=== PATIENT | male | born 1955 ===

== ENCOUNTER 2023-03-27 10:52 | Observation (INO) | payer MEDICARE, SELFPAY ==
--- NOTE | ~2023-03-27 | US_ITS ---
EXAMINATION: US carotid duplex BI DATE: 03/28/2023 08:11 INDICATION: Recent cerebrovascular accident, right posterior parietal area TECHNIQUE: Grayscale, color Doppler, and pulsed Doppler images of the cervical carotid arteries were obtained. The degree of vessel stenosis is placed in one of the following categories: normal, <50%, 5 0-69%, >=70% but less than near-occlusion, near-occlusion, or total occlusion. Note that percent sten osis relative to normal distal artery lumen diameter is indirectly measured from velocity measurement s as described by Fede, et al. Radiology 2003; 229:340-346. COMPARISON: None. FINDINGS: RIGHT: The right common carotid artery (CCA) peak systolic velocity (PSV) is 67.7 cm/s. The right internal c arotid artery (ICA) PSV is 131.1 cm/s. The right ICA end-diastolic velocity (EDV) is 40.4 cm/s. The r ight ICA/CCA PSV ratio is 1.9. Grayscale and color Doppler images yield an estimate of less than 50% diameter reduction from plaque in the ICA. The external carotid artery (ECA) PSV is 82.0 cm/s. There is antegrade flow in the right vertebral artery. LEFT: The left CCA PSV is 74.4 cm/s. The left ICA PSV is 74.4 cm/s. The left ICA EDV is 25.3 cm/s. The left ICA/CCA PSV ratio is 1.0. Grayscale and color Doppler images yield an estimate of less than 50% diam eter reduction from plaque in the ICA. The ECA PSV is 71.9 cm/s. There is antegrade flow in the left vertebral artery. IMPRESSION: 1. Less than 50% stenosis in the right internal carotid artery. 2. Less than 50% stenosis in the left internal carotid artery. Reviewed, dictated and finalized at [facility]. Reviewed, dictated and finalized at [facility].
--- NOTE | ~2023-03-27 | MR_ITS ---
MRI of the brain Clinical History: CVA Technique: Axial and sagittal T1-weighted images were acquired. These were followed by axial T2-weigh jr, diffusion weighted, gradient, and FLAIR images. Following intravenous administration of 13 cc Mu ltiHance gadolinium, T1-weighted fat-sat imaging was performed in the axial and coronal planes. COMPARISON: Prior MR dated 07/18/2011, CT scan performed 03/27/2023 Findings: There is extensive restricted diffusion involving the posterior right temporal lobe and rig ht parietal lobe, compatible with acute infarct, which correlates with the area of hypodensity seen o n recent CT scan. Focal T1 hyperintensity along the posterior margin infarct could reflect petechial hemorrhage or cortical laminar necrosis. There are mild background chronic microvascular ischemic prasanth nges in the periventricular white matter bilaterally. Chronic right occipital lobe infarct noted. Ventricles and subarachnoid spaces are unremarkable. Orbits are unremarkable. Paranasal sinuses and m astoid air cells are clear. Sagittal midline structures are intact. There is patchy enhancement within the infarct, which is not unexpected in an acute infarct. IMPRESSION: Acute infarct extensively involving the posterior right temporal lobe and right parietal lobe, as det luis e above. Chronic right occipital lobe infarct. Minimal chronic microvascular ischemic changes. Reviewed, dictated and finalized at location . IMPRESSION: Acute infarct extensively involving the posterior right temporal lobe and right parietal lobe, as detailed above. Chronic right occipital lobe infarct. Minimal chronic microvascular ischemic changes.
--- NOTE | ~2023-03-27 | CT_ITS ---
EXAMINATION: CT brain wo con DATE: 03/27/2023 13:29 INDICATION: Confusion TECHNIQUE: Computed tomography (CT) of the head was performed without intravenous contrast. The mA wa s adjusted according to patient size. Iterative reconstruction technique was employed. Exam dose: 12 10.67 mGy-cm total exam DLP. COMPARISON: MRI brain/brainstem, MRA brain 07/17/2011 CT brain FINDINGS: There is diminished attenuation of the right posterior parietal area consistent with recent /subacute cerebrovascular accident, right within the middle cerebral artery territory old right occip ital infarct, posterior cerebral artery territory. No intracranial hemorrhage is evident. No midline shift is noted. No subdural or epidural hematoma. No fracture or bone destruction of the cranial vault is detected. Paranasal sinuses and mastoid air c ells are unremarkable. IMPRESSION: Recent/subacute right posterior parietal cerebrovascular accident, within right middle c erebral artery territory Old right occipital infarct Reviewed, dictated and finalized at [facility]. Reviewed, dictated and finalized at [facility]. IMPRESSION: Recent/subacute right posterior parietal cerebrovascular accident, within right middle cerebral artery territory Old right occipital infarct
[2023-03-27 11:15] VITALS: PULSE 64; RESP 14; TEMP 37.1; O2SAT 100
--- NOTE | 2023-03-27 12:04 | ED.GENADULT ---
HPI - General Adult General Chief complaint: Unspecified Stated complaint: HAD ?TIA 7 DAYS AGO Time Seen by Provider: 03/27/23 12:02 History of Present Illness HPI narrative: This is a 68-year-old male presenting to ED with a chief complaint of a episode of confusion 6 days ago. At father's Day the patient woke up from a nap and said that he felt blank. He felt globally weak and had decreased appetite. He noted some blurry vision. He improved the next morning. At this time he has no complaints. During that time he had no fever chills chest pain difficulty breathing abdominal pain , focal weakness. His daughter came in to town today and heard about the event and wanted to come to the hospital to be checked out. She has noticed that over the last year to use been becoming more forgetful but is still capable of completing his activities of daily living. Related Data Allergies Allergy/AdvReac Type Severity Reaction Status Date / Time No Known Allergies Allergy Unverified 03/27/23 11:23 [facility] Past Medical History Medical History (Updated 03/27/23 @ 14:02 by Justin Alves MD) High cholesterol TIA (transient ischemic attack) Exam Narrative: APPEARANCE: No apparent distress. A&O x3, pleasant polite Head: atraumatic. EYES: EOMI, NOSE: Atraumatic NECK: Trachea midline RESPIRATORY: No increased rate of breathing clear to auscultation CARDIOVASCULAR: RRR, ABDOMINAL: Non-distended soft no guarding or rebound MUSCULOSKELETAl: No obvious deformities NEURO: Alert. Cranial nerves 2-12 grossly intact. Sensation light touch, motor function cerebellar function intact for 4 extremities. Gait exam was normal. SKIN:: Warm, dry. Normal color PSYCHIATRIC: Normal affect Course Vital Signs Vital signs: Vital Signs Temperature 98.7 F 03/27/23 11:15 Pulse Rate 64 03/27/23 11:15 Respiratory Rate 14 03/27/23 11:15 Pulse Oximetry 100 03/27/23 11:15 Oxygen Delivery Room Air 03/27/23 11:15 Temperature 98.7 F 03/27/23 11:15 Pulse Rate 64 03/27/23 11:15 Respiratory Rate 14 03/27/23 11:15 Pulse Oximetry 100 03/27/23 11:15 Oxygen Delivery Room Air 03/27/23 11:15 Medical Decision Making MDM Narrative Medical decision making narrative: -Presentation: 68-year-old male presenting 6 days after he had an episode of weakness and confusion. Daughter was concerned and wanted him to be evaluated. labwork and CT head ordered. . at this time the patient is well-appearing with normal vital signs. 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 Metabolic panel normal. Urine with 6-10 white blood cells and trace leuk esterase. Viral swabs negative. Independent EKG interpretation: Rhythm [sinus], Rate [61], [place] -[normal], RI -[normal], QRS [narrow], QTC [normal], T waves -[negative for concerning inversions], ST Segments - [Negative for concerning elevations] Final interpretations: [Normal Sinus Rhythm] Dx tests considered but not ordered: none -Procedures: -Interventions: 1 L normal saline, Aspirin 325 mg -Shared decision making / Disposition: CT shows that the patient had a recent stroke which was likely what occurred on father's Day. Patient will be admitted to the hospital for evaluation by Neurology and MRI. -RX Vital Signs Vital Signs: Vital Signs Temperature 98.7 F 03/27/23 11:15 Pulse Rate 64
--- NOTE | 2023-03-27 12:35 | ECG_ITS ---
Measurements Intervals [place] Rate: 61 P: 54 VT: 144 QRS: 31 QRSD: 83 T: 50 QT: 424 QTc: 428 Interpretive Statements SINUS RHYTHM VOLTAGE CRITERIA FOR LVH [MEETS CRITERIA IN ONE OF: R(aVL), S(V1), R(V5), R(V5/V6)+S(V1)] POSSIBLE SEPTAL MYOCARDIAL INFARCTION , OF INDETERMINATE AGE [30 ms Q WAVE IN V1/V2] ABNORMAL ECG NO PREVIOUS ECG AVAILABLE FOR COMPARISON Electronically Signed On 03-28-2023 8:22:38 CDT by Mayank Murcia M.D.
[2023-03-27] MEDS: SODIUM CHLORIDE 0.9% IV 1,000 ML 999 ML IV CONT (12:58)
[2023-03-27 13:10] LABS: Basophils Absolute Auto 0.1 K/mm3 (0.0-0.1); Basophils Percent Auto 0.6 % (0.2-1.2); Eosinophils Absolute Auto 0.2 K/mm3 (0-0.3); Eosinophils Percent Auto 1.5 % (0-4.4); Hematocrit 46.2 % (42.0-52.0); Hemoglobin 14.9 g/dL (14.0-18.0); Immature Granulocyte Absolute 0.04 K/mm3 (0.00-0.031); Immature Granulocyte Percent A 0.3 % (0-0.5); Lymphocytes Absolute Auto 2.62 K/mm3 (0.9-3.2); Lymphocytes Percent Auto 19.9 % (18.3-44.2); Mean Corpuscular HGB Conc 32.3 g/dl (32-36); Mean Corpuscular Hemoglobin 29.6 pg (26-34); Mean Corpuscular Volume 91.8 fl (80-100); Mean Platelet Volume 10.3 fl (7.4-10.4); Monocytes Absolute Auto 0.8 K/mm3 (0.1-0.6); Monocytes Percent Auto 6.1 % (2.6-8.5); Neutrophils Absolute Auto 9.4 K/mm3 (1.3-6.7); Neutrophils Percent Auto 71.6 % (45.5-73.1); Platelet Count Result 260 k/mm3 (150-375); Red Blood Count 5.03 M/mm3 (4.6-6.20); Red Cell Distribution Width 13.8 % (11.5-14.5); White Blood Count 13.2 K/mm3 (4.5-10.0)
[2023-03-27 13:16] LABS: Appearance Urine Clear (Clear); Bacteria Urine None Seen /hpf; Bilirubin Urine Negative (Negative); Blood Urine Negative (Negative); Color Urine Yellow (Yellow); Glucose Urine UA Negative (Negative); Ketones Urine Negative (Negative); Leukocyte Esterase Ur Trace LEU/UL (Negative); Nitrate Urine Negative (Negative); Protein Urine Trace mg/dL (Negative); RBC Urine 0-2 /hpf (0-2); Specific Grav Ur 1.014 (1.001-1.035); Squamous Epithelial Cell Urine None seen /hpf (Few); pH Urine 6.5 (5.0-9.0)
[2023-03-27 13:21] LABS: Alanine Aminotransferase 25 U/L (6-50); Albumin Level 4.9 g/dL (3.5-5.1); Alkaline Phosphatase 76 U/L (38-126); Anion Gap 9 mmol/L (8-16); Aspartate Amino Transferase 34 U/L (17-59); Bilirubin,Total 0.9 mg/dL (0.2-1.3); Blood Urea Nitrogen 8 mg/dL (9-20); Calcium 9.7 mg/dL (8.4-10.2); Carbon Dioxide 27 mmol/L (22-30); Chloride 105 mmol/L (98-107); Estimated CRCL calculation 51 ml/min; Estimated Glomerular Filt Rate > 60; Glucose 101 mg/dL (65-110); Potassium 3.6 mmol/L (3.4-5.0); Sodium 141 mmol/L (137-145)
[2023-03-27 13:24] LABS: Add Urine Microscopic? YES
[2023-03-27 13:56] LABS: Influenza A QL RT-PCR Negative (Negative); Influenza B QL RT-PCR Negative (Negative); RSV RNA, RT-PCR Negative (Negative); SARS-CoV-2 RNA PCR Negative (Negative)
[2023-03-27] MEDS: ASPIRIN 81 MG CHEWABLE TABLET 324 MG PO (14:27)
--- NOTE | 2023-03-27 14:28 | ED.GENADULT ---
HPI - General Adult General Chief complaint: Unspecified Stated complaint: HAD ?TIA 7 DAYS AGO Time Seen by Provider: 03/27/23 12:02 Related Data Allergies Allergy/AdvReac Type Severity Reaction Status Date / Time No Known Allergies Allergy Unverified 03/27/23 11:23 [facility] Past Medical History Medical History (Updated 03/27/23 @ 14:02 by Justin Alves MD) High cholesterol TIA (transient ischemic attack) Course Vital Signs Vital signs: Vital Signs Temperature 98.7 F 03/27/23 11:15 Pulse Rate 64 03/27/23 11:15 Respiratory Rate 14 03/27/23 11:15 Pulse Oximetry 100 03/27/23 11:15 Oxygen Delivery Room Air 03/27/23 11:15 Temperature 98.7 F 03/27/23 11:15 Pulse Rate 64 03/27/23 11:15 Respiratory Rate 14 03/27/23 11:15 Pulse Oximetry 100 03/27/23 11:15 Oxygen Delivery Room Air 03/27/23 11:15 Medical Decision Making Vital Signs Vital Signs: Vital Signs Temperature 98.7 F 03/27/23 11:15 Pulse Rate 64 03/27/23 11:15 Respiratory Rate 14 03/27/23 11:15 Pulse Oximetry 100 03/27/23 11:15 Oxygen Delivery Room Air 03/27/23 11:15 Temperature 98.7 F 03/27/23 11:15 Pulse Rate 64 03/27/23 11:15 Respiratory Rate 14 03/27/23 11:15 Pulse Oximetry 100 03/27/23 11:15 Oxygen Delivery Room Air 03/27/23 11:15 Lab Data 03/27/23 12:57 03/27/23 12:57 Labs: Lab Results 03/27/23 Range/Units 12:57 WBC 13.2 H (4.5-10.0) K/mm3 RBC 5.03 (4.6-6.20) M/mm3 Hgb 14.9 (14.0-18.0) g/dL Hct 46.2 (42.0-52.0) % MCV 91.8 (80-100) fl MCH 29.6 (26-34) pg MCHC 32.3 (32-36) g/dl RDW 13.8 (11.5-14.5) % Plt Count 260 (150-375) k/mm3 MPV 10.3 (7.4-10.4) fl Immature Gran % (Auto) 0.3 (0-0.5) % Neut % (Auto) 71.6 (45.5-73.1) % Lymph % (Auto) 19.9 (18.3-44.2) % [place] % (Auto) 6.1 (2.6-8.5) % Eos % (Auto) 1.5 (0-4.4) % Baso % (Auto) 0.6 (0.2-1.2) % Lymph # (Auto) 2.62 (0.9-3.2) K/mm3 [place] # (Auto) 0.8 H (0.1-0.6) K/mm3 Eos # (Auto) 0.2 (0-0.3) K/mm3 Baso # (Auto) 0.1 (0.0-0.1) K/mm3 Abs Immat Gran (auto) 0.04 H (0.00-0.031) K/mm3 Absolute Neuts (auto) 9.4 H (1.3-6.7) K/mm3 Absolute Nucleated RBC 0.0 (0.0-0.012) K/mm3 Nucleated RBC % 0.0 (0.0-0.2) % Sodium 141 (137-145) mmol/L Potassium 3.6 (3.4-5.0) mmol/L Chloride 105 (98-107) mmol/L Carbon Dioxide 27 (22-30) mmol/L Anion Gap 9 (8-16) mmol/L BUN 8 L (9-20) mg/dL Creatinine 1.10 (0.7-1.3) mg/dL Estim Creat Clear Calc 51 ml/min Estimated GFR > 60 (59 - ) Glucose 101 (65-110) mg/dL Calcium 9.7 (8.4-10.2) mg/dL Total Bilirubin 0.9 (0.2-1.3) mg/dL AST 34 (17-59) U/L ALT 25 (6-50) U/L Alkaline Phosphatase 76 (38-126) U/L Total Protein 9.0 H (6.3-8.2) g/dL Albumin 4.9 (3.5-5.1) g/dL Urine Color Yellow (Yellow) Urine Appearance Clear (Clear) Urine pH 6.5 (5.0-9.0) Ur Specific [place] 1.014 (1.001-1.035) Urine Protein Trace (Negative) mg/dL Urine Glucose (UA) Negative (Negative) mg/dL Urine Ketones Negative (Negative) mg/dL Ur Blood (Man) Negative (Negative) Urine Nitrate Negative (Negative) Urine Bilirubin Negative (Negative) Urine Urobilinogen 1.0 (<2.0) mg/dL Leukocyte Esterase Rfl Trace H (Negative) TOVA/UL Urine RBC 0-2 (0-2) /hpf Urine WBC 6-10 H /hpf Ur Squamous Epith Cells None seen (Few) /hpf Urine Bacteria None seen /hpf Urine Casts 3-5 Influenza A (RT-PCR) Negative (Negative) Influenza B (RT-PCR) Negative (Negative) RSV (RT-PCR) Negative (Negative) SARS-CoV-2 RNA (RT-PCR) Negative (Negative) Discharge Plan Discharge Clinical Impression: Stroke Patient Disposition: Still a Patient Condition: Stable Follow-up/Referrals: Otf Reyes MD [Primary Care Provider] -
--- NOTE | 2023-03-27 15:32 | PC.NURSE ---
Pt stating again that he wants to leave and wants this damn IV out of my arm . Education provided on benefits of staying. Pt agrees to staying and minutes later he forgets and again states he wants to leave. Dr. Alves in room to discussed with patient and family. Pt once again agrees to stay, ISAAC Jacob, aware.
[2023-03-27] MEDS: HALOPERIDOL LACTATE 5 MG/ML VIAL IV PUSH (15:42)
[2023-03-27 15:46] VITALS: BP 177/95; PULSE 71; RESP 18; O2SAT 99
--- NOTE | 2023-03-27 16:13 | ADMGEN ---
This patient, Cl [place], was admitted to Medical Room 252-01. Patient/family oriented to hospital policies and general routines including ID bracelet, bed and alarms, visiting hours, pain management, procedures, bathroom and other care routines, personal items, smoking policy, room service/diet, and visiting hours. Information on how to activate the Rapid Response Team has been discussed. Patient/Family are encouraged to report perceived risks to care and to ask questions if they do not understand what they are told or what they should do.
--- NOTE | 2023-03-27 16:26 | PM.IMHP ---
H&P: HPI History of Present Illness Date/Time: 03/27/23 16:26 Chief Complaint: Stroke-like symptoms. Narrative: This is a 68-year-old male patient who has a history of TIAs and CVA. The patient came to the emergency room with complaint of confusion for 6 days. On father's Day the patient weaker from a nap and said that he felt blank. He also complaints of having weakness and decreased appetite. He had some blurred vision at this time. The symptoms improved the next morning. At the time he had no complaints. However the patient has not been in touch with any of his family members and has not been eating. His daughter came in town today and heard about the event wanted him to come to the emergency room to be checked out. She noticed that the patient had been becoming more forgetful and has not been completing activities of daily living. Head CT recent/subacute right posterior parietal cerebrovascular accident, within right middle cerebral artery territory Old right occipital infarct Neurology has been consulted The patient was told several times that he is going to be admitted. The patient could not remember people telling him this. The patient stated he did not want to stay and he wanted to be signed out AMA. Multiple people including his daughter told him that he needed to stay because his stroke. Patient was given IV fluids aspirin and Haldol. The patient is being admitted to observation status on the date of service of 03/27/2023. Review of Systems Review of Systems: All systems reviewed & are unremarkable except as noted in HPI and below Constitutional: Constitutional: Reports as per HPI and Reports no additional constitutional complaints Eyes: Eyes: Reports as per HPI and Reports no additional eye complaints ENT: Reports system reviewed and no additional complaints, except as documented and Reports Normal hearing present Cardiovascular: Cardiovascular: Reports no additional cardiovascular complaints Respiratory: Respiratory: Reports no additional respiratory complaints and Reports no additional respiratory complaints Gastrointestinal: Gastrointestinal: Reports as per HPI and Reports no additional gastrointestinal complaints Musculoskeletal: Musculoskeletal: Reports no additional musculoskeletal complaints Integumentary/Breasts: Skin/Breast: Reports system reviewed and no additional complaints, except as docu and Reports as per HPI Neurologic: Reports system reviewed and no additional complaints, except as documented, Reports as per HPI and Reports Normal hearing present Psychiatric: Psychiatric: Reports no additional psychiatric complaints and Reports as per HPI Endocrine: Endocrine: Reports no additional endocrine complaints Hematologic/Lymphatic: Hematologic/Lymphatic: Reports no additional hematologic/lymphatic complaints Allergic/Immunologic: Allergic/Immunologic: Reports no additional allergic/immunologic complaints PMF Past Medical History Medical History (Updated 03/27/23 @ 20:05 by Nidia Ahumada NP) High cholesterol Hypertension TIA (transient ischemic attack) Surgical History Surgical History (Updated 03/27/23 @ 20:00 by Nidia Ahumada NP) History of skin graft Family History Family History (Updated 03/27/23 @ 20:01 by Nidia Ahumada NP) Other Diabetes mellitus Hypertension Social History Social History (Updated 03/27/23 @ 20:02 by Nidia Ahumada NP) Social History: The patient is and has 6 children. 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 He used to drink heavily but no longer drinks. He denies any alcohol use. Does use marijuana. Code status full code Smoking status: Never smoker Alcohol intake: former Substance use: current Substance use type: marijuana Lack of Transportation: No Lack of Food: Never True Current Housing: I Have Housing Concerned About Future Housing: No Difficulty Paying
--- NOTE | 2023-03-27 18:26 | PC.NURSE ---
Admission done with help of daughter at bedside, due to pt not wanting to answer/give information. Pt states that he wants to go home, but he is okay with staying just the one night for stroke work up. Pt AOx4 when questioned, but daughter states that pt has a lot of problems with short term memory.
[2023-03-27 20:00] VITALS: PULSE 99
[2023-03-27 21:45] VITALS: O2SAT 99
[2023-03-27 22:48] VITALS: BP 168/95; PULSE 56; RESP 21; TEMP 36.8; O2SAT 100
[2023-03-28] VITALS: PULSE 52
[2023-03-28 04:00] VITALS: PULSE 64
[2023-03-28 05:54] LABS: Basophils Absolute Auto 0.1 K/mm3 (0.0-0.1); Basophils Percent Auto 0.5 % (0.2-1.2); Eosinophils Absolute Auto 0.3 K/mm3 (0-0.3); Eosinophils Percent Auto 2.8 % (0-4.4); Hematocrit 43.6 % (42.0-52.0); Immature Granulocyte Absolute 0.04 K/mm3 (0.00-0.031); Immature Granulocyte Percent A 0.4 % (0-0.5); Lymphocytes Absolute Auto 2.18 K/mm3 (0.9-3.2); Lymphocytes Percent Auto 19.2 % (18.3-44.2); Mean Corpuscular HGB Conc 32.1 g/dl (32-36); Mean Corpuscular Hemoglobin 29.7 pg (26-34); Mean Corpuscular Volume 92.4 fl (80-100); Mean Platelet Volume 10.5 fl (7.4-10.4); Monocytes Percent Auto 8.6 % (2.6-8.5); Neutrophils Absolute Auto 7.8 K/mm3 (1.3-6.7); Neutrophils Percent Auto 68.5 % (45.5-73.1); Platelet Count Result 255 k/mm3 (150-375); Red Blood Count 4.72 M/mm3 (4.6-6.20); Red Cell Distribution Width 13.9 % (11.5-14.5); White Blood Count 11.3 K/mm3 (4.5-10.0)
[2023-03-28 06:00] VITALS: BP 184/99; PULSE 70; RESP 21; TEMP 36.2; O2SAT 100
[2023-03-28 06:07] LABS: Alanine Aminotransferase 19 U/L (6-50); Albumin Level 4.1 g/dL (3.5-5.1); Alkaline Phosphatase 62 U/L (38-126); Anion Gap 4 mmol/L (8-16); Aspartate Amino Transferase 25 U/L (17-59); Blood Urea Nitrogen 10 mg/dL (9-20); Calcium 9.5 mg/dL (8.4-10.2); Carbon Dioxide 31 mmol/L (22-30); Chloride 107 mmol/L (98-107); Cholesterol 185 mg/dL (0-200); Estimated CRCL calculation 47 ml/min; Estimated Glomerular Filt Rate 60; Glucose 95 mg/dL (65-110); HDL Direct 37 mg/dL; Magnesium 2.4 mg/dL (1.6-2.3); Potassium 3.8 mmol/L (3.4-5.0); Sodium 142 mmol/L (137-145); Triglycerides 111 mg/dL (<150)
[2023-03-28 06:18] LABS: LDL Cholesterol Direct 118 mg/dL
[2023-03-28 07:39] LABS: Thyroid Stimulating Hormone Reflex 0.983 uIU/mL (0.465-4.68)
[2023-03-28] MEDS: CLOPIDOGREL BISULFATE 75 MG TABLET PO (08:47)
[2023-03-28] MEDS: ASPIRIN 81 MG ENTERIC TABLET PO (08:47)
[2023-03-28] MEDS: hydrALAZINE HCL 20 MG/ML VIAL 10 MG IV PUSH (09:49)
[2023-03-28 09:52] VITALS: BP 232/144; PULSE 101; RESP 18; TEMP 36.5; O2SAT 98
[2023-03-28 11:03] VITALS: BP 204/94; PULSE 98; RESP 16; TEMP 36.3; O2SAT 100
--- NOTE | 2023-03-28 11:43 | PM.IMPN ---
Progress Note: A&P Assessment and Plan (1) Stroke: Code(s): I63.9 - Cerebral infarction, unspecified Status: Acute Assessment and Plan: CT showed Recent/subacute right posterior parietal cerebrovascular accident, within right middle cerebral artery territory Old right occipital infarct that patient was taking Plavix for. Patient head discontinue his on Plavix due to reading it was carcinogenic. MRI has been ordered carotid artery Dopplers less than 50% stenosis bilaterally Continue with patient's aspirin and Plavix as previously ordered since he has had history of TIAs and an old CVA. Neurology has been consulted. An echo has been ordered. (2) High cholesterol: Code(s): E78.00 - Pure hypercholesterolemia, unspecified Status: Acute Assessment and Plan: Lipid profile within normal limits. (3) Hypertension: Code(s): I10 - Essential (primary) hypertension Status: Acute Assessment and Plan: The patient has blood pressure of 177/95. Hydralazine with parameters. Start Norvasc 5 mg daily (4) Poor appetite: Code(s): R63.0 - Anorexia Status: Acute Assessment and Plan: Patient states he has had lack of appetite since his stroke symptoms started. dietary consult Speech eval ordered. Subjective Date/time seen: 03/28/23 11:43 Interval history: Patient to bed with daughter and son-in-law bedside. He is very adamant about going home today. Explained to him that he needs to be evaluated by Neurology. He states that his symptoms began on father's Day approximately 2 weeks ago. Stated that he was having some difficulty with memory/confusion. He was having some weakness in his extremities upon waking up that day but this resolved a day or 2 after. He does have history of prior CVA. He also states that after his symptoms began he lost his appetite and had not been eating. He was on Plavix and aspirin most likely due to past stroke. He states that he had not been taking these medications regularly for the past several weeks due to reading about Plavix being carcinogenic. He believes he has a history of high blood pressure but has not been on any medications for it. Per patient's daughter he is unreliable with follow-ups. She would like him to receive workup in the hospital such as an echocardiogram rather than any workup as an outpatient due to his lack of compliance. Review of Systems Review of Systems: All systems reviewed & are unremarkable except as noted in HPI and below Exam Narrative: GENERAL: Comfortable, no acute distress HENMT: moist mucous membranes EYES: EOM intact b/l NECK: no lymphadenopathy RESPIRATORY: clear to auscultation CARDIO: RRR GI: soft, nontender, bowel sounds present SKIN: no rashes EXTREMITIES: no edema, redness or tenderness Objective Data Vital Signs Vital Signs: Vital Signs - 24 hr 03/27/23 15:46 03/27/23 17:28 03/27/23 22:48 Temperature 98.2 F Pulse Rate 71 56 L Respiratory Rate 18 21 H Blood Pressure 177/95 H 168/95 H Pulse Oximetry 99 100 Oxygen Delivery Room Air 03/27/23 20:00 03/27/23 20:00 03/28/23 00:00 Temperature Pulse Rate 99 52 L Respiratory Rate Blood Pressure Pulse Oximetry Oxygen Delivery Room Air 03/27/23 21:45 03/28/23 04:00 03/28/23 06:00 Temperature 97.2 F L Pulse Rate 64 70 Respiratory Rate 21 H Blood Pressure 184/99 H Pulse Oximetry 99 100 Oxygen Delivery Room Air 03/28/23 09:52 03/28/23 11:03 Temperature 97.7 F 97.4 F L Pulse Rate 101 H 98 Respiratory Rate 18 16 Blood Pressure 232/144 H 204/94 H Pulse Oximetry 98 100 Oxygen Delivery Intake/Output Intake/Output: Intake & Output 03/25/23 03/26/23 03/27/23 03/28/23 23:59 23:59 23:59 23:59 Intake Total 1000 240 Balance 1000 240 Meds/Results Medications: Active Medications Generic Name Dose Route Start Last Admin Trad
[2023-03-28] MEDS: amLODIPine BESYLATE 5 MG TABLET PO (12:41)
[2023-03-28 15:24] VITALS: BP 208/91; PULSE 82; RESP 18; TEMP 36.1; O2SAT 97
== END 2023-03-28 15:55 | disposition left against medical advice (07) ==
LOC: ANHED 14:02 → ANH2MED 15:46
PROVIDERS: Nurse Practitioner; Admitting Provider Internal Medicine; Emergency Provider Emergency Medicine; PCP Family Medicine; Visit Provider Internal Medicine
DX: I63.9 Cerebral infarction, unspecified (principal); R41.0 Disorientation, unspecified; R53.1 Weakness; R63.0 Anorexia; Z68.20 Body mass index [BMI] 20.0-20.9, adult; Z20.822 Contact with and (suspected) exposure to COVID-19; E78.00 Pure hypercholesterolemia, unspecified; I10 Essential (primary) hypertension; H53.8 Other visual disturbances; D72.829 Elevated white blood cell count, unspecified; R94.31 Abnormal electrocardiogram [ECG] [EKG]; F12.90 Cannabis use, unspecified, uncomplicated; Z86.73 Personal history of transient ischemic attack (TIA), and cerebral infarction without residual deficits; Z82.49 Family history of ischemic heart disease and other diseases of the circulatory system; Z79.02 Long term (current) use of antithrombotics/antiplatelets; Z79.82 Long term (current) use of aspirin
CPT/HCPCS: 36415; 70450; 70553; 80053; 80061; 81001; 83735; 84443; 85025; 87086; 87088; 87637; 93005; 93880; 96361; 96374; 96375; 99285; A9270; A9577; G0378; J0360; J1630; J7030